=== PATIENT | male | born 1975 | race Caucasian/White ===

== ENCOUNTER 2023-11-29 00:34 | Inpatient (IN) | payer BC ==
[~2023-11-29] VITALS: Ht 170.2 cm; Wt 149.7 kg
[2023-11-29 00:41] VITALS: BP_SYST 201; PULSE 119; RESP 20; TEMP 98; O2SAT 96
[2023-11-29 01:20] LABS: BARBITURATE, URINE NEGATIVE (NEG <=200); BENZODIAZEPINE, URINE NEGATIVE (NEG <=150); CANNABINOID, URINE NEGATIVE (NEG <=50); COCAINE, URINE NEGATIVE (NEG <=150); METHAMPHETAMINES SCREEN,URINE NEGATIVE (NEG <=500); OPIATE, URINE NEGATIVE (NEG <=100); PHENCYCLIDINE SCREEN,URINE NEGATIVE (NEG <=25); UR TRICYCLIC ANTIDEPRESSANTS NEGATIVE (NEG <=300); URINE AMPHETAMINE NEGATIVE (NEG <=500); URINE METHADONE NEGATIVE (NEG <=200); URINE OXYCODONE SCREEN NEGATIVE (NEG <=100)
[2023-11-29 01:32] LABS: BASOPHILS # (AUTO) 0.1 K/uL (0.0-0.2); BASOPHILS % (AUTO) 0.6 % (0.0-2.0); EOSINOPHILS # (AUTO) 0.2 K/uL (0.0-0.4); HEMATOCRIT 41.4 % (36-54); HEMOGLOBIN 14.1 g/dL (14.0-18.0); LYMPHOCYTES # (AUTO) 3.4 K/uL (1.0-5.5); LYMPHOCYTES % (AUTO) 21.9 % (20.5-51.5); MEAN CORPUSCULAR HEMOGLOBIN 31 pg (27-31); MEAN CORPUSCULAR HGB CONC 34 % (32-36); MEAN CORPUSCULAR VOLUME 91 fL (79.0-98.0); MONOCYTES # (AUTO) 1.4 K/uL (0.0-1.0); MONOCYTES % (AUTO) 9.3 % (1.7-9.3); NEUTROPHILS # (AUTO) 10.5 K/uL (1.8-7.7); NEUTROPHILS % (AUTO) 67.2 % (40.0-70.0); PLATELET COUNT (AUTO) 384 K/uL (130-430); RED BLOOD CELL COUNT(AUTO) 4.56 MIL/uL (4.2-6.2); RED CELL DISTRIBUTION WIDTH 13.9 % (9.0-15.0); WHITE BLOOD COUNT (AUTO) 15.6 K/uL (4.8-10.8)
[2023-11-29] MEDS: ENALAPRILAT DIHYDRATE 1.25 MG/ML VIAL IVP ONE (01:36)
[2023-11-29 02:39] LABS: ANION GAP 12 (5-15); CALCIUM 8.7 mg/dL (8.4-11.0); CARBON DIOXIDE 24 mmol/L (23-29); CHLORIDE 103 mmol/L (98-107); CREATININE 1.15 mg/dL (0.55-1.30); GFR AFRICAN AMERICAN 88 mL/min (>90); GLUCOSE 104 mg/dL (74-106); POTASSIUM 3.8 mmol/L (3.5-5.1); SODIUM SERUM 139 mmol/L (136-145); UREA NITROGEN, BLOOD 14 mg/dL (8-21)
[2023-11-29 02:42] LABS: GFR NON AFRICAN-AMERICAN 72 mL/min (>90)
[2023-11-29 02:45] LABS: ALANINE AMINOTRANSFERASE 40 U/L (12-78); ALBUMIN 3.4 g/dL (3.4-4.8); ASPARTATE AMINOTRANSFERASE 21 U/L (10-37); BILIRUBIN,DIRECT 0.1 mg/dL (0.0-0.3); CREATINE KINASE, TOTAL 434 U/L (39-308); TOTAL BILIRUBIN 0.4 mg/dL (0.0-1.0); TOTAL PROTEIN, SERUM 7.9 g/dL (6.4-8.3)
[2023-11-29 03:58] LABS: CKMB RELATIVE INDEX 0.1 (0.0-2.9); CREATINE KINASE MB 0.4 ng/mL (0-3.6)
[2023-11-29] MEDS: LABETALOL HCL 20 MG/4 ML CARTRIDGE IVP ONE (04:23)
[2023-11-29 04:25] LABS: ABG O2 SAT% ESTIMATE 95.7 % (94.0-100.0); BLOOD GAS BASE EXCESS 1.5 mmol/L (-3.0-3.0); BLOOD GAS HCO3 25.3 mmol/L (21.0-27.0); BLOOD GAS PCO2 37.1 mmHg (32.0-45.0); BLOOD GAS PO2 75.2 mmHg (75.0-100.0)
[2023-11-29 04:26] LABS: ALLEN'S TEST YES (P)
[2023-11-29] MEDS: cefTRIAXone 1 GM IVPB PREMIX 50 ML IV SCH (06:21)
[2023-11-29] MEDS: NIFEdipine 30 MG TAB.ER.24 PO SCH (08:35)
[2023-11-29] MEDS: FUROSEMIDE 20 MG/2 ML VIAL IVP SCH (08:35)
[2023-11-29 09:40] VITALS: PULSE 95; O2SAT 95
[2023-11-29] MEDS ORDERED: ALBUTEROL SULFATE 0.083% 2.5 MG/3 ML VIAL.NEB INH PRN (09:45)
[2023-11-29] MEDS ORDERED: NALOXONE HCL 0.4 MG/ML AMP (NARCAN) IVP PRN ×2 (09:45)
[2023-11-29] MEDS ORDERED: HYDROcodone/ACETAMIN 5-325 MG TAB (NORCO/ VICODIN) PO PRN (09:45)
[2023-11-29] MEDS ORDERED: ACETAMINOPHEN 325 MG TABLET PO PRN (09:45)
[2023-11-29] MEDS ORDERED: IPRATROPIUM BROM 0.5 MG/2.5 ML VIAL.NEB (ATROVENT) INH PRN (09:45)
[2023-11-29] MEDS ORDERED: LORazepam 2 MG/ML VIAL IVP PRN (09:45)
[2023-11-29] MEDS ORDERED: ONDANSETRON HCL 4 MG/2 ML VIAL IVP PRN (09:45)
[2023-11-29] MEDS: METOPROLOL SUCCINATE 50 MG TAB.SR.24H (TOPROL XL) PO SCH (10:01)
[2023-11-29 11:45] VITALS: BP_SYST 147; PULSE 93; RESP 18; TEMP 98.4; O2SAT 96
[2023-11-29 12:00] VITALS: BP_SYST 147; PULSE 95; RESP 18; TEMP 97.8; O2SAT 96
[2023-11-29] MEDS: ACETAMINOPHEN 325 MG TABLET PO PRN (12:48)
[2023-11-29 13:32] VITALS: O2SAT 94
[2023-11-29] MEDS: IPRATROPIUM/ALBUTEROL SULFATE 3 ML AMPUL.NEB (DUONEB) INH SCH (13:32)
[2023-11-29] MEDS: NORMAL SALINE 5 ML DISP.SYRIN IVF SCH (13:55)
[2023-11-29 16:00] VITALS: BP_SYST 124; PULSE 84; RESP 18; TEMP 98.6; O2SAT 97
[2023-11-29] MEDS: HYDROcodone/ACETAMIN 10-325 MG TAB PO PRN (20:30)
[2023-11-30] VITALS (7 sets, daily range): BP systolic 123–127; PULSE 90–95; RESP 16–17; TEMP 98–98.1; O2SAT 93–99
[2023-11-30] MEDS: BUDESONIDE 0.5 MG/2 ML AMPUL.NEB INH SCH (07:55)
[2023-11-30 08:04] LABS: BASOPHILS # (AUTO) 0.1 K/uL (0.0-0.2); BASOPHILS % (AUTO) 0.5 % (0.0-2.0); EOSINOPHILS # (AUTO) 0.5 K/uL (0.0-0.4); EOSINOPHILS % (AUTO) 3.3 % (0.0-4.0); HEMATOCRIT 42.2 % (36-54); HEMOGLOBIN 14.7 g/dL (14.0-18.0); LYMPHOCYTES # (AUTO) 3.8 K/uL (1.0-5.5); LYMPHOCYTES % (AUTO) 26.4 % (20.5-51.5); MEAN CORPUSCULAR HEMOGLOBIN 32 pg (27-31); MEAN CORPUSCULAR HGB CONC 35 % (32-36); MEAN CORPUSCULAR VOLUME 92 fL (79.0-98.0); MONOCYTES # (AUTO) 1.5 K/uL (0.0-1.0); NEUTROPHILS # (AUTO) 8.7 K/uL (1.8-7.7); NEUTROPHILS % (AUTO) 59.8 % (40.0-70.0); PLATELET COUNT (AUTO) 442 K/uL (130-430); RED BLOOD CELL COUNT(AUTO) 4.58 MIL/uL (4.2-6.2); RED CELL DISTRIBUTION WIDTH 13.9 % (9.0-15.0); WHITE BLOOD COUNT (AUTO) 14.6 K/uL (4.8-10.8)
[2023-11-30 08:22] LABS: CALCIUM 8.8 mg/dL (8.4-11.0); CREATININE 1.11 mg/dL (0.55-1.30); POTASSIUM 4.3 mmol/L (3.5-5.1)
[2023-12-01 07:19] VITALS: O2SAT 95
[2023-12-01 07:28] LABS: BASOPHILS # (AUTO) 0.1 K/uL (0.0-0.2); BASOPHILS % (AUTO) 0.4 % (0.0-2.0); EOSINOPHILS # (AUTO) 0.3 K/uL (0.0-0.4); EOSINOPHILS % (AUTO) 2.5 % (0.0-4.0); HEMATOCRIT 42.1 % (36-54); HEMOGLOBIN 14.3 g/dL (14.0-18.0); LYMPHOCYTES # (AUTO) 3.8 K/uL (1.0-5.5); LYMPHOCYTES % (AUTO) 29.9 % (20.5-51.5); MEAN CORPUSCULAR HEMOGLOBIN 32 pg (27-31); MEAN CORPUSCULAR HGB CONC 34 % (32-36); MEAN CORPUSCULAR VOLUME 93 fL (79.0-98.0); MONOCYTES # (AUTO) 1.5 K/uL (0.0-1.0); MONOCYTES % (AUTO) 11.7 % (1.7-9.3); NEUTROPHILS # (AUTO) 7.2 K/uL (1.8-7.7); NEUTROPHILS % (AUTO) 55.5 % (40.0-70.0); PLATELET COUNT (AUTO) 452 K/uL (130-430); RED BLOOD CELL COUNT(AUTO) 4.55 MIL/uL (4.2-6.2); RED CELL DISTRIBUTION WIDTH 13.4 % (9.0-15.0); WHITE BLOOD COUNT (AUTO) 12.9 K/uL (4.8-10.8)
[2023-12-01 07:50] LABS: ERYTHROCYTE SEDIMENTATION RATE 46 MM/HR (0-15)
[2023-12-01 07:51] LABS: ALBUMIN 3.1 g/dL (3.4-4.8); CALCIUM 8.8 mg/dL (8.4-11.0); CREATININE 1.15 mg/dL (0.55-1.30); POTASSIUM 4.3 mmol/L (3.5-5.1); TOTAL BILIRUBIN 0.4 mg/dL (0.0-1.0); TOTAL PROTEIN, SERUM 7.8 g/dL (6.4-8.3)
[2023-12-01 08:00] VITALS: BP_SYST 137; PULSE 95; RESP 20; TEMP 97.9; O2SAT 93
[2023-12-01] MEDS: CEFTRIAXONE SOD 1 GM/ D5W 50 ML IV SCH (08:43)
[2023-12-01] MEDS: NIFEDIPINE 90 MG TABLET.SA (PROCARDIA XL 90 MG) PO SCH (08:44)
[2023-12-01 11:49] VITALS: BP_SYST 129; PULSE 98; RESP 18; TEMP 98.3; O2SAT 96
[2023-12-01 13:16] VITALS: O2SAT 94
[2023-12-01] MEDS ORDERED: POTA8TAB66 PO (14:29)
[2023-12-01] MEDS ORDERED: FURO-149 PO (14:29)
[2023-12-01] MEDS ORDERED: NIFE90TA24 PO (14:29)
[2023-12-01 14:48] VITALS: BP_SYST 129; PULSE 98; RESP 18; TEMP 98.3; O2SAT 96
== END 2023-12-01 15:30 | disposition home health service (06) | DRG 304 ==
LOC: SED 00:34 → STU 05:17 → SMU 11-30 14:09
PROVIDERS: ADMIT Specialist; ATTEND Specialist
DX: I16.0 Hypertensive urgency (principal); I50.33 Acute on chronic diastolic (congestive) heart failure; Z68.43 Body mass index [BMI] 50.0-59.9, adult; I11.0 Hypertensive heart disease with heart failure; J20.9 Acute bronchitis, unspecified; Z20.822 Contact with and (suspected) exposure to COVID-19; E66.01 Morbid (severe) obesity due to excess calories; D75.839 Thrombocytosis, unspecified
CPT/HCPCS: 36415; 36600; 71045; 80048; 80053; 80076; 80307; 82550; 82553; 82803; 83880; 84484; 85025; 85379; 85651; 87040; 93005; 93306; 94640; 94760; 99291; G0378; J0696; J1940; J7060; J7626